=== PATIENT | female | born 1955 | race Caucasian/White ===

== ENCOUNTER 2021-11-16 06:50 | Day surgery (SDC) | payer MEDICARE, BC ==
[~2021-11-16] VITALS: Ht 172.7 cm; Wt 109.1 kg
[~2021-11-16 06:50] MED LIST: ALBU8HFA IH; AMLO2.5T96 PO; CHOL500013 PO; CYAN-53 PO; CYCL-397 PO; FAMO20 PO; FLUC150T61 PO; FLUT16H NASAL; LINA5TAB PO; LISI-658 PO; METF-1211 PO; SIMV-259 PO; SODIUM CHLORIDE 0.9% 1,000 ML ONE
[2021-11-16] MEDS ORDERED: SODIUM CHLORIDE 0.9% 1,000 ML IV ONE (07:00)
[2021-11-16] MEDS ORDERED: DiphenhydrAMINE HCL 50 MG CAPSULE ONE (07:53)
[2021-11-16] MEDS ORDERED: ASPIRIN 81 MG CHEWABLE TABLET ONE (07:53)
[2021-11-16] MEDS ORDERED: DIAZEPAM 5 MG TABLET ONE (07:53)
[2021-11-16 08:56] LABS: GLUCOMETER DEV NAME(LOC) SDS.; GLUCOSE,POINT OF CARE 91 MG/DL (70-110)
[2021-11-16] MEDS ORDERED: ASPIRIN 81 MG CHEWABLE TABLET PO ONE (09:00)
[2021-11-16] MEDS ORDERED: DiphenhydrAMINE HCL 50 MG CAPSULE PO ONE (09:00)
[2021-11-16] MEDS ORDERED: DIAZEPAM 5 MG TABLET PO ONE (09:00)
[2021-11-16] MEDS ORDERED: LIDOCAINE/PF 1% 30 ML VIAL ONE (10:14)
[2021-11-16] MEDS ORDERED: SODIUM BICARBONATE 50 MEQ/50 ML VIAL ONE (10:14)
[2021-11-16] MEDS ORDERED: HEPARIN SODIUM 1000 UNITS/NS 500 ML ONE (10:14)
[2021-11-16] MEDS ORDERED: IOHEXOL 300 MG/ML 50 ML VIAL ONE (10:14)
[2021-11-16 10:43] VITALS: BP 145/68
[2021-11-16] MEDS ORDERED: FentaNYL CITRATE PF 100 MCG/2 ML VIAL ONE (10:44)
[2021-11-16] MEDS ORDERED: MIDAZOLAM HCL 2 MG/2 ML VIAL ONE (10:44)
[2021-11-16] MEDS ORDERED: IOHEXOL 300 MG/ML 50 ML VIAL IARTER ONE (11:00)
[2021-11-16] MEDS ORDERED: HEPARIN SODIUM 1000 UNITS/NS 1,000 ML IARTER ONE (11:00)
[2021-11-16] MEDS ORDERED: LIDOCAINE 1% 30 ML/SOD BICARB 8.4% 4 ML SQ ONE (11:00)
[2021-11-16] MEDS ORDERED: FentaNYL CITRATE PF 100 MCG/2 ML VIAL IVP ONE (11:00)
[2021-11-16] MEDS ORDERED: MIDAZOLAM HCL 2 MG/2 ML VIAL IVP ONE (11:00)
[2021-11-16 11:16] VITALS: BP 148/72
== END 2021-11-16 15:40 | disposition home or self-care (01) ==
LOC: CATHLAB 06:50
PROVIDERS: ATTEND Internal Medicine Interventional Cardiology
DX: R94.39 Abnormal result of other cardiovascular function study (principal); E66.01 Morbid (severe) obesity due to excess calories; Z98.51 Tubal ligation status; I10 Essential (primary) hypertension; E11.9 Type 2 diabetes mellitus without complications; Z79.899 Other long term (current) drug therapy; Z98.890 Other specified postprocedural states
CPT/HCPCS: 93454; 82962; 99152; 93005; C1760; J3010; J1644; J3490 ×2; J2250; J7030; Q9967